=== PATIENT | female | born 1960 | race Caucasian/White ===

== ENCOUNTER → 2017-03-08 16:43 | Outpatient (CLI) | payer OTHER ==
[2015-02-08 10:49] VITALS: BMI 28.3
[~2017-03-08 16:43] MED LIST: DICLOFENAC SODI50 MG PO; ESTRACE2 MG PO; HYDROCODONE-APA1 TAB PO; MIRAPEX0.25 MG PO; NEURONTIN 300300 MG PO; OXYBUTYNIN CHLOR5 MG PO; PHENERGAN25 M1 PO; PRILOSEC20 MG PO; TENORMIN25 MG PO; TRAZODONE HCL50 MG PO; VESICARE5 MG PO; ZESTRIL40 MG PO; ZOFRAN ODT4 MG/UDTAB PO
[2017-03-08 19:10] LABS: LDL-HDL RATIO 1.4 ratio (1.5-3.5)
== END | disposition home or self-care (01) ==
LOC: D.LABREF 16:43
PROVIDERS: Internal Medicine Cardiovascular Disease
DX: R42 Dizziness and giddiness (principal); R07.9 Chest pain, unspecified; R06.00 Dyspnea, unspecified; R00.0 Tachycardia, unspecified; R55 Syncope and collapse

== ENCOUNTER → 2017-03-10 08:54 | Outpatient (CLI) | payer OTHER ==
[2015-02-08 10:49] VITALS: BMI 28.3
--- NOTE | 2017-03-12 08:18 | EC ---
PATIENT:OSVALDO HOLLIS DATE OF SERVICE: 03/10/17 SEX: F MEDICAL RECORD: [id number] DATE OF : 58 LOCATION:D[facility] AGE OF PATIENT: 56 ADMISSION DATE: 03/10/17 REFERRING PHYSICIAN: INTERPRETING PHYSICIAN: JESSIKA BLUE MD ECHOCARDIOGRAM REPORT ECHO CHARGES 4 ECHO COMPLETE CLINICAL DIAGNOSIS: DIZZINESS,CHEST PAIN,TACHYCARDIA,SYNCOPE,TACHY CARDIA,DYSPNEA ECHOCARDIOGRAPHIC MEASUREMENTS (adult normal given) AC root (d.<3.7cm) 3.4 cm LV Septum d (<1.2 cm> 1.2 cm Valve Excursion 1.7 cm LV Septum (systole) 1.3 cm Left Atria (s.<4.0cm> 3.5 cm LVPW d(<1.2cm) 1.3 cm RV (d.<2.3cm) 3.2 cm LVPW (sytole) 1.6 cm LV diastole(<5.6CM) 4.2 cm MV E-F(>70mm/sec) cm LV systole 2.4 cm LVOT Diameter 2.0 cm MV exc.(>10mm) 2.0 cm Est.ejection fraction (50-75%) % Pericardial Effusion N DOPPLER: LVIT cm/sec A 76.0 cm/sec E 101 cm/sec LA cm/sec RVSP 38 mmHg LVOT 113 cm/sec AOP1/2T m/s Asc. Ao 128 cm/sec RVOT 79 cm/sec RA cm/sec PA 96 cm/sec AV Gradient Peak 6.51 mmHg AV Mean 3.47 mmHg AV Area 2.0 cm MV Gradient Peak 4.59 mmHg MV Mean 1.23 mmHg MV Area cm COMMENTS: Olive Grader: 2 RODY MEDINA Community Support Associate: Meme Blue TAPE# PACS DATE OF SERVICE: 03/10/2017 TRANSTHORACIC ECHOCARDIOGRAM FINDINGS: 1. The left ventricle has mild concentric left ventricular hypertrophy with normal inflow characteristics and ejection fraction of 60%. 2. The right ventricle is mildly enlarged with mild right ventricular hypertrophy. ECHOCARDIOGRAM REPORT [id number] OSVALDO HOLLIS 3. The left atrium is normal size, normal function. 4. The aortic valve is normal. 5. The mitral valve has mild mitral regurgitation. 6. Tricuspid valve has mild tricuspid regurgitation. 7. The pericardium is normal. 8. The pulmonic valve is normal. 9. The right atrium is normal size, normal function. In conclusion, the patient has a structurally normal heart with evidence of mild left ventricular hypertrophy. TRANSINT:[id number] Voice Confirmation ID: [id number] DOCUMENT ID: [id number] JESSIKA BLUE MD at 0818 CC: [id number] DICTATION DATE: 03/11/17 0742 FURNACE COMBUSTION ANALYST: 03/11/171910 [facility] CLI 03/10/17 [facility] [address] [place] [address]
== END | disposition home or self-care (01) ==
LOC: D.ECHO 08:54
DX: R42 Dizziness and giddiness (principal); R07.9 Chest pain, unspecified; R06.02 Shortness of breath; R55 Syncope and collapse; R00.0 Tachycardia, unspecified

== ENCOUNTER 2017-12-09 22:23 | Outpatient (CLI) | payer OTHER ==
[2015-02-08 10:49] VITALS: BMI 28.3
== END 2017-12-09 23:59 | disposition home or self-care (01) ==
LOC: D.MAMMO 22:23
DX: Z12.31 Encounter for screening mammogram for malignant neoplasm of breast (principal)

== ENCOUNTER → 2017-12-14 12:34 | Outpatient (CLI) | payer OTHER ==
[2015-02-08 10:49] VITALS: BMI 28.3
--- NOTE | ~2017-12-14 | EC ---
PATIENT:OSVALDO HOLLIS DATE OF SERVICE: 12/14/17 SEX: F MEDICAL RECORD: [id number] DATE OF : 58 LOCATION:D[facility] AGE OF PATIENT: 57 ADMISSION DATE: 12/14/17 REFERRING PHYSICIAN: INTERPRETING PHYSICIAN: JESSIKA BLUE MD ECHOCARDIOGRAM REPORT ECHO CHARGES 4 ECHO COMPLETE Date: 12/14/17 CLINICAL DIAGNOSIS: HTN, LVH, TACHYCARDIA, SYNCOPE ECHOCARDIOGRAPHIC MEASUREMENTS (adult normal given) AC root (d.<3.7cm) 2.5 cm LV Septum d (<1.2 cm> 1.3 cm Valve Excursion 1.4 cm LV Septum (systole) 1.3 cm Left Atria (s.<4.0cm> 3.3 cm LVPW d(<1.2cm) 0.8 cm RV (d.<2.3cm) 2.9 cm LVPW (sytole) 0.9 cm LV diastole(<5.6CM) 3.8 cm MV E-F(>70mm/sec) cm LV systole 3.5 cm LVOT Diameter 2.1 cm MV exc.(>10mm) cm Est.ejection fraction (50-75%) % DOPPLER: LVIT cm/sec A 75 cm/sec E 85 cm/sec LA cm/sec RVSP 38.6 mmHg LVOT 107 cm/sec AOP1/2T m/s Asc. Ao 141 cm/sec RVOT 81 cm/sec RA cm/sec PA 93 cm/sec AV Gradient Peak 8.0 mmHg AV Mean 5.1 mmHg AV Area 2.6 cm MV Gradient Peak 4.0 mmHg MV Mean 2.2 mmHg MV Area cm COMMENTS: Field Nurse Case Manager: Elyse MARTINO Vacuum Bottle Assembler: Meme Blue TAPE# PACS Pericardial Effusion N DATE OF SERVICE: PROCEDURE: Transthoracic echocardiogram. FINDINGS: 1. Left ventricle has mild left ventricular hypertrophy. Inflow characteristics are normal. Ejection fraction is 60%. 2. The left atrium is normal. 3. The mitral valve is normal. 4. The tricuspid valve has mild tricuspid regurgitation. ECHOCARDIOGRAM REPORT [id number] OSVALDO HOLLIS 5. The right ventricle is normal. 6. The right atrium is normal. CONCLUSIONS: This is a normal echocardiogram for the patient's stated age. TRANSINT:[id number] Voice Confirmation ID: [id number] DOCUMENT ID: [id number] JESSIKA BLUE MD CC: [id number] DICTATION DATE: 12/15/17815 SPRAY OPERATOR: 12/15/17904 [facility] CLI 12/14/17 [place] [id number]
== END | disposition home or self-care (01) ==
LOC: D.ECHO 12:34
DX: I10 Essential (primary) hypertension (principal); I51.7 Cardiomegaly; R00.0 Tachycardia, unspecified; R55 Syncope and collapse

== ENCOUNTER 2019-10-12 19:00 | Outpatient (CLI) | payer MEDICARE ==
[2015-02-08 10:49] VITALS: BMI 28.3
== END 2019-10-12 23:59 | disposition home or self-care (01) ==
LOC: D.MAMMO 19:00
PROVIDERS: ATTEND Family Medicine
DX: Z12.31 Encounter for screening mammogram for malignant neoplasm of breast (principal)